=== PATIENT | female | born 1950 | race Caucasian/White ===

== ENCOUNTER 2018-11-21 10:13 | Emergency (ER) | payer OTHER, SELFPAY ==
[2018-11-21 10:45] VITALS: BP 165/88; PULSE 78; RESP 16; TEMP 36.6; O2SAT 96
--- NOTE | 2018-11-21 11:33 | ED.EYEPROB ---
HPI - Eye Problem General Chief complaint: Eye Problems Stated complaint: eye infection, r Time Seen by Provider: 11/21/18 11:17 Source: patient Mode of arrival: ambulatory Limitations: no limitations History of Present Illness HPI Narrative: Patient is a 68-year-old female who presents with right eye discomfort. She says she has had a stye for about a month she did warm compresses felt it rupture and drain. However she has been noticing white bumps on the inside of her upper lid where her stye was. She says it is bothersome to her she has no eye drainage she has no real eye pain just the bump some cells hurt. She has a history of orbital cellulitis she is worried that that might be it. She has no surrounding erythema she has not had any fevers. She is currently traveling but lives in [place]. chief complaint: eye pain Duration: constant Location: right eye Eye Symptoms: pain Related Data Previous Rx's Medication Instructions Recorded ofloxacin 2 drop EYE-RIGHT Q4HRWA 7 Days #10 11/21/18 ml Review of Systems Review of Systems Narrative: GENERAL: Denies chills,fever HEENT: See HPI RESPIRATORY: Denies dyspnea, cough, wheezing CARDIOVASCULAR: Denies chest pain, palpitations GASTROINTESTINAL: Denies nausea, vomiting MUSCULOSKELETAL: Denies extremity pain, injury SKIN: No rash, no laceration, no pruritus NEUROLOGIC: Denies weakness, dizziness, headache, numbness 8 point review of systems is negative except for those stated above and HPI [facility] Medical History Patient denies significant medical history (Acute) Social History (Updated 11/21/18 @ 12:01 by Renata Evans DO) alcohol intake: never substance use type: does not use Social History alcohol intake: never substance use type: does not use Exam Initial Vital Signs Initial Vital Signs: Vital Signs Temperature 98 F 11/21/18 10:45 Pulse Rate 78 11/21/18 10:45 Respiratory Rate 16 11/21/18 10:45 Blood Pressure 165/88 H 11/21/18 10:45 Pulse Oximetry 96 11/21/18 10:45 GENERAL: Well-appearing, well-nourished and in no acute distress. CARDIOVASCULAR: peripheral pulses in tact, cap refill <2 sec RESPIRATORY: No respiratory distress, speaks in full sentences without difficulty [ABDOMEN: Soft, nontender, no guarding or rebound] EXTREMITIES: Normal range of motion, no clubbing or edema. Neurovascularly intact NEUROLOGICAL: Cranial nerves II through XII grossly intact. Normal gait and speech. SKIN: Warm, dry, no petechiae, no rashes or lesions. Eyes General: appearance normal, both eyes and all related structures Eyelids: eyelid abnormality right upper eyelid (In side lid 2 white spots noted laterally. No significant swelling) tenderness; without erythema, without foreign bodies, without lacerations and with no ptosis Conjunctivae: conjunctivae normal Cornea: corneas normal and fluorescein used (No dye uptake) Pupils: PERRL EOM: EOM intact bilaterally Course Orders Ordered: Discontinued Medications Proparacaine HCl (Parcaine 0.5% Ophth Francine) 1 drops EYE-BOTH NOW ONE Stop: 11/21/18 11:41 Last Admin: 11/21/18 11:43 Dose: 1 drops Documented by: DANIEL Vital Signs Vital signs: Vital Signs - 8 hr 11/21/18 10:45 Temperature 98 F Pulse Rate 78 Respiratory Rate 16 Blood Pressure 165/88 H Pulse Oximetry 96 MDM - Eye Problem MDM Narrative Medical decision making narrative: This may be remnants of stye left over. No significant fluctuation she has no surrounding erythema or periorbital swelling. Do not suspect septal or preseptal cellulitis. She states that she has in the past needed stronger antibiotics then just erythromycin. She was on Vigamox before. Discharge Plan Departure Patient Disposition: Home Clinical Impression: Hordeolum externum of right upper eyelid Instructions: Hordeolum Activity Restrictions/Additional Instructions: *You have been diagnosed with stye right upper lid *What to do: Continue warm compresses *Continue to take medications as directed *Follow up with your primary care provider in 2-3 days [and follow up with ortho, urology etc] *Return to ER if you should have [such as] [or] any new, worsening or concerning symptoms Prescriptions: New ofloxacin 0.3 % drops 2 drop EYE-RIGHT Q4HRWA 7 Days Qty: 10 RF: 0 Referrals: Dory Cuevas MD [Physician] - Dong Pineda MD [Physician] -
[2018-11-21] MEDS: PROPARACAINE 0.5% OPHTH SOL 1 DROPS EYE-BOTH (11:43)
[2018-11-21 12:04] VITALS: BP 164/78; PULSE 18; RESP 73; O2SAT 98
== END 2018-11-21 12:05 | disposition home or self-care (01) ==
PROVIDERS: Emergency Provider Emergency Medicine
DX: H00.011 Hordeolum externum right upper eyelid (principal)
CPT/HCPCS: 99282